=== PATIENT | male | born 1990 | race African-American/Black ===

== ENCOUNTER 2017-08-29 02:19 | Emergency (ER) | payer OTHER ==
[2017-08-29] MEDS: DEXAMETHASONE 10 MG/ML 1 ML INJ PO (04:38)
[2017-08-29] MEDS: IPRATROPIUM (NEB) 0.5 MG/2.5 ML AMP HHN (04:57)
[2017-08-29] MEDS: ALBUTEROL 0.083% (NEB) 2.5 MG/3 ML AMP HHN (04:57)
== END 2017-08-29 05:35 | disposition home or self-care (01) ==
LOC: FTE 02:19
DX: J45.901 Unspecified asthma with (acute) exacerbation (principal)
CPT/HCPCS: 94664; 99284-25